=== PATIENT | female | born 1935 | race Caucasian/White ===

== ENCOUNTER 2018-11-10 01:50 | Observation (INO) | payer MEDICARE ==
[2018-11-10] MEDS ORDERED: Iopamidol 755 MG/ML 500 ML Multipack Bottle IVPUSH STA (02:56)
--- NOTE | 2018-11-10 02:59 | US ---
INDICATION: Bilateral leg pain TECHNIQUE: : Ultrasound venous duplex lower extremity bilateral. Compression venous exam was performed using vasques-scale, color Doppler, and spectral Doppler imaging. COMPARISON: None FINDINGS: Sonographic imaging demonstrates the common femoral, deep femoral, superficial femoral, popliteal, posterior tibial and greater saphenous veins to be fully compressible with normal color Doppler blood flow in both lower extremities. IMPRESSION: Normal bilateral lower extremity venous ultrasound, no sign of deep venous thrombosis. Dictated by Heide Edmond MD @ Nov 10 2018 2:58AM Signed by Dr. Heide Edmond @ Nov 10 2018 2:58AM
--- NOTE | 2018-11-10 03:27 | CT ---
INDICATION: Chest pain, elevated D-dimer TECHNIQUE: CT chest pulmonary PE protocol acquired with 100 cc Isovue 370 IV contrast. COMPARISON: None FINDINGS: Cardiovascular structures: Normal vascular enhancement of the pulmonary arteries, no sign of pulmonary embolism. Cardiomegaly. Coronary artery calcifications. No sign of aneurysm in the thoracic aorta. Mediastinum and tata: No mass or adenopathy. Lungs: Clear. Pleura and pericardium: No effusions. Chest wall and axilla: No mass or adenopathy. Upper abdomen: Unremarkable. Bones: No significant findings. IMPRESSION: No pulmonary embolism or pneumonia. No acute intrathoracic abnormality. Cardiomegaly with coronary artery disease. Please note that all CT scans at this facility use dose modulation, iterative reconstruction, and/or weight-based dosing when appropriate to reduce radiation dose to as low as reasonably achievable. Dictated by Heide Edmond MD @ Nov 10 2018 3:24AM Signed by Dr. Heide Edmond @ Nov 10 2018 3:24AM
[2018-11-10] MEDS ORDERED: Sodium Chloride 0.9% 1,000 ML IV SCH (03:45)
--- NOTE | 2018-11-10 03:49 | EDM.PDOC ---
ED HPI GENERAL MEDICAL PROBLEM - General Chief Complaint: General Stated Complaint: AMB Time Seen by Provider: 11/10/18 03:47 Source of Information: Reports: Patient - History of Present Illness INITIAL COMMENTS - FREE TEXT/NARRATIVE: HISTORY AND PHYSICAL: History of present illness: [82-year-old female nausea vomiting diarrhea presents from [facility] via EMS They had performed initial lab which is provided CBC CMP within normal limits however d-dimer was elevated patient did not have any chest pain shortness of breath and is hemodynamically stable resting comfortably at current. Perform CTA chest ultrasound of lower extremities ] Review of systems: As per history of present illness and below otherwise all systems reviewed and negative. Past medical history: As per history of present illness and as reviewed below otherwise noncontributory. Surgical history: As per history of present illness and as reviewed below otherwise noncontributory. Social history: No reported history of drug or alcohol abuse. Family history: As per history of present illness and as reviewed below otherwise noncontributory. Physical exam: HEENT: Atraumatic, normocephalic, pupils reactive, negative for conjunctival pallor or scleral icterus, mucous membranes moist, throat clear, neck supple, nontender, trachea midline. Lungs: Clear to auscultation, breath sounds equal bilaterally, chest nontender. Heart: S1S2, regular, negative for clicks, rubs, or JVD. Abdomen: Soft, nondistended, nontender. Negative for masses or hepatosplenomegaly. Negative for costovertebral tenderness. Pelvis: Stable nontender. Genitourinary: Deferred. Rectal: Deferred. Extremities: Atraumatic, negative for cords or calf pain. Neurovascular unremarkable. Neuro: Awake, alert, oriented. Cranial nerves II through XII unremarkable. Cerebellum unremarkable. Motor and sensory unremarkable throughout. Exam nonfocal. Diagnostics: [HEENT chest PE protocol Bilateral lower extremity Doppler ] Therapeutics: [ normal saline Zofran ] Impression: [ nausea vomiting diarrhea Viral syndrome ] Definitive disposition and diagnosis as appropriate pending reevaluation and review of above. bilateral leg Pain Score (Numeric/FACES): 8 - Related Data Allergies Allergy/AdvReac Type Severity Reaction Status Date / Time diclofenac [From Arthrotec] Allergy Other Verified 11/10/18 01:54 misoprostol [From [employer]throtec] Allergy Other Verified 11/10/18 01:54 NSAIDS (Non-Steroidal Allergy Other Verified 11/10/18 01:53 Anti-Inflamma Sulfa (Sulfonamide Allergy Other Verified 11/10/18 01:54 Antibiotics) walnut Allergy Other Verified 11/10/18 01:54 Home Meds: Home Meds traMADol [Ultram] 50 mg PO Q4H PRN 11/10/18 [History] traZODone HCl [Trazodone HCl] 50 mg PO BEDTIME 11/10/18 [History] Past Medical History HEENT History: Reports: None Cardiovascular History: Reports: Heart Murmur, High Cholesterol, Hypertension Respiratory History: Reports: None Genitourinary History: Reports: None 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: Reports: None Neurological History: Reports: None Psychiatric History: Reports: None Endocrine/Metabolic History: Reports: Diabetes, Type II Hematologic History: Reports: None Oncologic (Cancer) History: Reports: None Dermatologic History: Reports: None - Infectious Disease History Infectious Disease History: Reports: Chicken Pox, Measles, Mumps - Past Surgical History HEENT Surgical History: Reports: None GI Surgical History: Reports: Appendectomy Other Musculoskeletal Surgeries/Procedures:: left ankle surgery Social & Family History - Family History Family Medical History: Noncontributory - Tobacco Use Smoking Status *Q: Never Smoker - Recreational Drug Use Recreational Drug Use: No ED ROS GENERAL - Review of Systems Review Of Systems: See Below ED EXAM, GENERAL - Physical Exam Exam: See Below Course - Vital Signs Last Recorded V/S: Last Vital Signs Temp 97.1 F 11/10/18 03:36 Pulse 92 11/10/18 03:36 Resp 19 11/10/18 03:36 BP 151/61 H 11/10/18 03:36 Pulse Ox 94 L 11/10/18 03:36 - Orders/Labs/Meds Orders: Active Orders 24 hr Category Date Time Status Sodium Chloride 0.9% [Normal Saline] 1,000 ml Med 11/10/18 03:45 Ordered IV STAT Medication Orders Sodium Chloride (Normal Saline) 1,000 mls @ 125 mls/hr IV STAT ROSALIA Meds: Medications Generic Name Dose Route Start Last Admin Trade Name Freq PRN Reason Stop Dose Admin Sodium Chloride 1,000 mls @ 125 mls/hr 11/10/18 03:45 Normal Saline IV STAT ROSALIA Discontinued Medications Generic Name Dose Route Start Last Admin Trade Name Freq PRN Reason Stop Dose Admin Iopamidol 100 ml 11/10/18 02:56 11/10/18 02:56 Isovue Multipack-370 (76%) IVPUSH 11/10/18 02:57 100 ml ONETIME STA Administration Departure - Departure Time of Disposition: 03:48 Disposition: Refer to Observation Condition: Fair Clinical Impression: Dehydration - Discharge Information - My Orders Last 24 Hours: My Active Orders 11/10/18 03:45 Sodium Chloride 0.9% [Normal Saline] 1,000 ml IV STAT - Assessment/Plan Last 24 Hours: My Active Orders 11/10/18 03:45 Sodium Chloride 0.9% [Normal Saline] 1,000 ml IV STAT
[2018-11-10] MEDS: Sodium Chloride 0.9% 1,000 ML IV SCH ×2 (05:39→16:25)
--- NOTE | 2018-11-10 07:06 | PCM.HP ---
H&P History of Present Illness - General Date of Service: 11/10/18 Admit Problem/Dx: Admission Diagnosis/Problem Admission Diagnosis/Problem Dehydration Source of Information: Patient History Limitations: Reports: No Limitations - History of Present Illness Initial Comments - Free Text/Narative: The patient is an 82-year-old lady who had presented to her local hospital by ambulance with a complaint of severe pain in her bilateral lower extremities right greater than left. The patient has a history of severe right ankle fracture with retained hardware 5 years ago. The patient was also sent here for further workup due to elevated d-dimer. The patient feels weak and fatigued. The patient has denied any dizziness or lightheadedness. She's had no other complaints. The patient has been in relatively good health and is only taking medication for her pain and sleeping. Onset of Symptoms: Reports: Gradual Duration of Symptoms: Reports: Day(s): Location: Reports: Chest Quality: Reports: Ache, Stabbing Severity: Moderate Improves with: Reports: Rest Worsens with: Reports: Movement Context: Denies: Sick Contact Associated Symptoms: Reports: No Other Symptoms bilateral leg Pain Score (Numeric/FACES): 8 - Related Data Allergies/Adverse Reactions: Allergies Allergy/AdvReac Type Severity Reaction Status Date / Time diclofenac [From Arthrotec] Allergy Other Verified 11/10/18 01:54 misoprostol [From [employer]throtec] Allergy Other Verified 11/10/18 01:54 NSAIDS (Non-Steroidal Allergy Other Verified 11/10/18 01:53 Anti-Inflamma Sulfa (Sulfonamide Allergy Other Verified 11/10/18 01:54 Antibiotics) walnut Allergy Other Verified 11/10/18 01:54 Home Medications: Home Meds Esomeprazole [NexIUM] 20 mg PO DAILY 11/10/18 [History] Gabapentin [Neurontin] 300 mg PO TID 11/10/18 [History] traMADol [Ultram] 50 mg PO Q4H PRN 11/10/18 [History] traZODone HCl [Trazodone HCl] 50 mg PO BEDTIME 11/10/18 [History] Past Medical History HEENT History: Reports: None Cardiovascular History: Reports: Heart Murmur, High Cholesterol, Hypertension Respiratory History: Reports: None Gastrointestinal History: Reports: None Genitourinary History: Reports: None ACQUISITION ANALYST History: Reports: None Musculoskeletal History: Reports: None Neurological History: Reports: None Psychiatric History: Reports: None Endocrine/Metabolic History: Reports: Diabetes, Type II Hematologic History: Reports: None Oncologic (Cancer) History: Reports: None Dermatologic History: Reports: None - Infectious Disease History Infectious Disease History: Reports: Chicken Pox, Measles, Mumps - Past Surgical History HEENT Surgical History: Reports: None GI Surgical History: Reports: Appendectomy Other Musculoskeletal Surgeries/Procedures:: left ankle surgery Social & Family History - Family History Family Medical History: Noncontributory - Tobacco Use Smoking Status *Q: Never Smoker Second Hand Smoke Exposure: No - Caffeine Use Caffeine Use: Reports: None, Energy Drinks Caffeine Use Comment: drinks an energy drink occasionally. - Recreational Drug Use Recreational Drug Use: No - Living Situation & Occupation Living situation: Reports: , with Spouse Occupation: Retired H&P Review of Systems - Review of Systems: Review Of Systems: See Below General: Reports: Weakness, Fatigue HEENT: Reports: No Symptoms Pulmonary: Reports: No Symptoms Cardiovascular: Reports: No Symptoms Gastrointestinal: Reports: No Symptoms Genitourinary: Reports: No Symptoms Musculoskeletal: Reports: Leg Pain Skin: Reports: No Symptoms Psychiatric: Reports: No Symptoms Neurological: Reports: No Symptoms Hematologic/Lymphatic: Reports: No Symptoms Immunologic: Reports: No Symptoms Exam - Exam Exam: See Below - Vital Signs Vital Signs: Last Vital Signs Temp 37.1 C 11/10/18 04:41 Pulse 97 11/10/18 04:41 Resp 18 11/10/18 04:41 BP 160/78 H 11/10/18 04:41 Pulse Ox 96 11/10/18 04:41 Weight: 76.566 kg - Exam Quality Assessment: Supplemental Oxygen General: Alert, Oriented, Cooperative HEENT: Conjunctiva Clear, EACs Clear, EOMI, Hearing Intact, Mucosa Moist & [place] , Pupils Equal, PERRLA Neck: Supple, Trachea Midline. No: JVD Lungs: Clear to Auscultation, Normal Respiratory Effort Cardiovascular: Regular Rate, Regular Rhythm GI/Abdominal Exam: Normal Bowel Sounds, Soft, Non-Tender, No Organomegaly, No Distention (Female) Exam: Deferred Rectal (Female) Exam: Deferred Back Exam: Full Range of Motion (Age-related changes). No: Normal Inspection ( Kyphosis) Extremities: Normal Inspection, Normal Range of Motion, Non-Tender Skin: Warm, Dry, Intact Neuro Extensive - Mental Status: Alert, Oriented x3 Neuro Extensive - Motor, Sensory, Reflexes: CN II-XII Intact, Normal Gait, Normal Reflexes Psychiatric: Alert, Normal Affect, Normal Mood - Patient Data Result Diagrams: 11/10/18 07:44 11/10/18 07:44 - Problem List (1) Dehydration SNOMED Code(s): 66644396 ICD Code: E86.0 - DEHYDRATION Status: Acute Priority: High Current Visit: Yes (2) History of fracture of right ankle SNOMED Code(s): 522750582 ICD Code: Z87.81 - PERSONAL HISTORY OF (HEALED) TRAUMATIC FRACTURE Status: Chronic Priority: Medium Current Visit: Yes (3) Insomnia SNOMED Code(s): 183560152 ICD Code: G47.00 - INSOMNIA, UNSPECIFIED Status: Chronic Priority: Medium Current Visit: Yes Qualifiers: Insomnia type: other insomnia Qualified Code(s): G47.09 - Other insomnia (4) Chronic pain after traumatic injury SNOMED Code(s): 394884626 ICD Code: G89.29 - OTHER CHRONIC PAIN Status: Chronic Priority: Medium Current Visit: Yes Problem List Initiated/Reviewed/Updated: Yes Orders Last 24hrs: Active Orders 24 hr Category Date Time Status Admission Status [Patient Status] [ADT] Stat ADT 11/10/18 03:49 Active Regular Diet [DIET] Diet 11/10/18 Breakfast Active Sodium Chloride 0.9% [Normal Saline] 1,000 ml Med 11/10/18 05:30 Active IV ASDIRECTED Medication Orders Sodium Chloride (Normal Saline) 1,000 mls @ 75 mls/hr IV ASDIRECTED ROSALIA Last Admin: 11/10/18 05:39 Dose: 75 mls/hr Assessment/Plan Comment:: The patient is an 82-year-old lady who had been admitted to observation this morning. She'll be kept on IV fluids at 100 mL per hour normal saline. Patient has been encouraged to ambulate. The patient does have chronic pain in her legs and physical therapy is also been ordered. The patient has a personal history of diabetes mellitus type 2 however, she is not on medication for this. The patient will be kept on a ADA diet for now. I do not believe that she needs to be on Accu-Cheks at this time. The patient also will be kept on DVT prophylaxis with the use of heparin. Once the patient has achieved a degree of relief from her pain and she has been evaluated by physical therapy she'll likely be appropriate for discharge home.
[2018-11-10] MEDS ORDERED: traMADol 50 MG Tab PO PRN (07:55)
[2018-11-10] MEDS ORDERED: oxyCODONE 5 MG Tab PO PRN (07:56)
[2018-11-10] MEDS ORDERED: Docusate Sodium 100 MG Cap PO PRN (07:56)
[2018-11-10] MEDS ORDERED: Acetaminophen 325 MG Tab PO PRN (07:56)
[2018-11-10 08:32] LABS: CHLORIDE,CL 102 mmol/L (98-107); SODIUM,NA 138 mmol/L (136-145)
[2018-11-10] MEDS: Gabapentin 300 MG Cap PO SCH ×3 (08:50→21:36)
[2018-11-10] MEDS: Omeprazole 20 MG Cap.CR PO SCH (08:50)
[2018-11-10] MEDS: Heparin Sodium 5,000 Units/ML Vial SUBCUT SCH ×2 (14:28→21:36)
[2018-11-10] MEDS ORDERED: traZODone 50 MG Tab PO SCH (21:00)
[2018-11-11] MEDS: Sodium Chloride 0.9% 1,000 ML IV SCH (05:55)
[2018-11-11] MEDS: Gabapentin 300 MG Cap PO SCH (06:34)
[2018-11-11] MEDS: Omeprazole 20 MG Cap.CR PO SCH (06:34)
[2018-11-11] MEDS: Heparin Sodium 5,000 Units/ML Vial SUBCUT SCH (06:34)
--- NOTE | 2018-11-11 07:38 | PCM.DCSUM1 ---
Discharge Summary - Hospital Course HPI Initial Comments: The patient was admitted initially secondary to dehydration and pain in both of her legs being unable to ambulate. Diagnosis: Stroke: No - Discharge Data Discharge Date: 11/11/18 Discharge Disposition: Home, Self-Care 01 Condition: Fair - Discharge Diagnosis/Problem(s) (1) Dehydration SNOMED Code(s): 79450939 ICD Code: E86.0 - DEHYDRATION Status: Resolved Priority: High Current Visit: Yes (2) History of fracture of right ankle SNOMED Code(s): 658180871 ICD Code: Z87.81 - PERSONAL HISTORY OF (HEALED) TRAUMATIC FRACTURE Status: Chronic Priority: Medium Current Visit: Yes (3) Insomnia SNOMED Code(s): 932031350 ICD Code: G47.00 - INSOMNIA, UNSPECIFIED Status: Chronic Priority: Medium Current Visit: Yes Qualifiers: Insomnia type: other insomnia Qualified Code(s): G47.09 - Other insomnia (4) Chronic pain after traumatic injury SNOMED Code(s): 935867423 ICD Code: G89.29 - OTHER CHRONIC PAIN Status: Chronic Priority: Medium Current Visit: Yes - Patient Summary/Data Consults: Consultations 11/11/18 07:00 Consult to Occupational Therapy [OT Evaluation and Treatment] [CONS] Routine PT Evaluation and Treatment [CONS] Routine Hospital Course: The patient is an 82-year-old lady who had been admitted to observation this morning. She'll be kept on IV fluids at 100 mL per hour normal saline. Patient has been encouraged to ambulate. The patient does have chronic pain in her legs and physical therapy is also been ordered. The patient has a personal history of diabetes mellitus type 2 however, she is not on medication for this. The patient will be kept on a ADA diet for now. I do not believe that she needs to be on Accu-Cheks at this time. The patient also will be kept on DVT prophylaxis with the use of heparin. The patient also had been kept on appropriate ADA diet secondary to her diabetes. The patient also had been evaluated by physical therapy and was thought that she would do well in her home with a front wheel walker and steps. The patient does have a walker available. She was kept on IV normal saline at 100 mL per hour for gentle hydration. The patient did not have any evidence of cell or metabolic abnormalities other than hyperglycemia which was mild and easily controlled. Her glucose was at its maximum 114 mg/dL. The patient was also kept on her appropriate home medications. She had continued to improve with hydration, rest and had been thoroughly evaluated by physical therapy. The patient does have a 2 story house with one flight of stairs. It was not should she would do well ambulating. Because of the patient's pain was thought to be due to her osteoarthritis and she had been given a short prescription for Robaxin 500 mg by mouth every 8 hours. The patient has been tolerating her ADA diet and this is to continue. Patient is also to have activity as tolerated. She is to follow-up with her primary care physician. She has been hemodynamically stable and is been discharged from acute hospitalization with recommendations above. - Patient Instructions Diet: Heart Healthy Diet, Diabetic Diet Activity: As Tolerated - Discharge Plan *PRESCRIPTION DRUG MONITORING PROGRAM REVIEWED*: No *COPY OF PRESCRIPTION DRUG MONITORING REPORT IN PATIENT JOJO: No Prescriptions/Med Rec: Methocarbamol [Robaxin] 500 mg PO Q8H PRN #30 tablet PRN Reason: Muscle Spasm Home Medications: Home Meds Esomeprazole [NexIUM] 20 mg PO DAILY 11/10/18 [History] Gabapentin [Neurontin] 300 mg PO TID 11/10/18 [History] traMADol [Ultram] 50 mg PO Q4H PRN 11/10/18 [History] traZODone HCl [Trazodone HCl] 50 mg PO BEDTIME 11/10/18 [History] Methocarbamol [Robaxin] 500 mg PO Q8H PRN #30 tablet 11/11/18 [Rx] Oxygen Therapy Mode: Room Air Patient Handouts: Dehydration, Adult, Trfr-ol-[id number], Methocarbamol tablets Referrals: [facility] [Outside] Kev Lopes MD [Ordering Only Provider] - 11/19/18 11:00 am - Discharge Summary/Plan Comment DC Time >30 min.: Yes - General Info Date of Service: 11/11/18 Admission Dx/Problem (Free Text: Admission Diagnosis/Problem Admission Diagnosis/Problem Dehydration Subjective Update: Doing well, tolerating physical therapy. Functional Status: Reports: Pain Controlled - Review of Systems General: Reports: No Symptoms HEENT: Reports: No Symptoms Pulmonary: Reports: No Symptoms Cardiovascular: Reports: No Symptoms Gastrointestinal: Reports: No Symptoms Genitourinary: Reports: No Symptoms Musculoskeletal: Reports: Leg Pain Skin: Reports: No Symptoms Neurological: Reports: No Symptoms Psychiatric: Reports: No Symptoms - Patient Data Vitals - Most Recent: Last Vital Signs Temp 36.1 C 11/11/18 04:00 Pulse 68 11/11/18 04:00 Resp 16 11/11/18 04:00 BP 140/61 11/11/18 04:00 Pulse Ox 92 L 11/11/18 04:00 Weight - Most Recent: 76.566 kg I&O - Last 24 hours: Intake & Output 11/10/18 11/11/18 11/11/18 22:59 06:59 14:59 Intake Total 1713 1127 Output Total 950 400 Balance 763 727 Lab Results - Last 24 hrs: Laboratory Results - last 24 hr 11/10/18 11/10/18 11/11/18 Range/Units 07:44 07:44 05:40 WBC 10.58 5.62 (4.0-11.0) K/uL RBC 4.22 L 4.02 L (4.30-5.90) M/uL Hgb 12.9 12.1 (12.0-16.0) g/dL Hct 38.9 38.1 (36.0-46.0) % MCV 92.2 94.8 (80.0-98.0) fL MCH 30.6 30.1 (27.0-32.0) pg MCHC 33.2 31.8 (31.0-37.0) g/dL RDW Std Deviation 43.6 46.1 (28.0-62.0) fl RDW Coeff of Hodan 13 13 (11.0-15.0) % Plt Count 167 187 (150-400) K/uL MPV 10.20 9.70 (7.40-12.00) fL Neut % (Auto) 77.5 55.8 (48.0-80.0) % Lymph % (Auto) 17.8 34.2 (16.0-40.0) % [place] % (Auto) 4.5 7.8 (0.0-15.0) % Eos % (Auto) 0.1 2.0 (0.0-7.0) % Baso % (Auto) 0.1 0.2 (0.0-1.5) % Neut # (Auto) 8.2 H 3.1 (1.4-5.7) K/uL Lymph # (Auto) 1.9 1.9 (0.6-2.4) K/uL [place] # (Auto) 0.5 0.4 (0.0-0.8) K/uL Eos # (Auto) 0.0 0.1 (0.0-0.7) K/uL Baso # (Auto) 0.0 0.0 (0.0-0.1) K/uL Nucleated RBC % 0.0 0.0 /100WBC Nucleated RBCs # 0 0 K/uL Sodium 138 (136-145) mmol/L Potassium 4.1 (3.5-5.1) mmol/L Chloride 102 (98-107) mmol/L Carbon Dioxide 25.7 (21.0-32.0) mmol/L BUN 11 (7.0-18.0) mg/dL Creatinine 0.8 (0.6-1.0) mg/dL Est Cr Clr Drug Dosing 43.62 mL/min Estimated GFR (MDRD) > 60.0 ml/min Glucose 114 H (74-106) mg/dL Calcium 9.1 (8.5-10.1) mg/dL Magnesium 2.0 (1.8-2.4) mg/dL Total Bilirubin 0.4 (0.2-1.0) mg/dL AST 18 (15-37) IU/L ALT 19 (14-63) IU/L Alkaline Phosphatase 78 (46-116) U/L Total Protein 6.4 (6.4-8.2) g/dL Albumin 3.4 (3.4-5.0) g/dL Globulin 3.0 (2.6-4.0) g/dL Albumin/Globulin Ratio 1.1 (0.9-1.6) 11/11/18 Range/Units 05:40 WBC (4.0-11.0) K/uL RBC (4.30-5.90) M/uL Hgb (12.0-16.0) g/dL Hct (36.0-46.0) % MCV (80.0-98.0) fL MCH (27.0-32.0) pg MCHC (31.0-37.0) g/dL RDW Std Deviation (28.0-62.0) fl RDW Coeff of [place] (11.0-15.0) % Plt Count (150-400) K/uL MPV (7.40-12.00) fL Neut % (Auto) (48.0-80.0) % Lymph % (Auto) (16.0-40.0) % [place] % (Auto) (0.0-15.0) % Eos % (Auto) (0.0-7.0) % Baso % (Auto) (0.0-1.5) % Neut # (Auto) (1.4-5.7) K/uL Lymph # (Auto) (0.6-2.4) K/uL [place] # (Auto) (0.0-0.8) K/uL Eos # (Auto) (0.0-0.7) K/uL Baso # (Auto) (0.0-0.1) K/uL Nucleated RBC % /100WBC Nucleated RBCs # K/uL Sodium 140 (136-145) mmol/L Potassium 4.2 (3.5-5.1) mmol/L Chloride 105 (98-107) mmol/L Carbon Dioxide 27.7 (21.0-32.0) mmol/L BUN 13 (7.0-18.0) mg/dL Creatinine 1.0 (0.6-1.0) mg/dL Est Cr Clr Drug Dosing 34.90 mL/min Estimated GFR (MDRD) 53.2 ml/min Glucose 109 H (74-106) mg/dL Calcium 8.6 (8.5-10.1) mg/dL Magnesium (1.8-2.4) mg/dL Total Bilirubin (0.2-1.0) mg/dL AST (15-37) IU/L ALT (14-63) IU/L Alkaline Phosphatase (46-116) U/L Total Protein (6.4-8.2) g/dL Albumin (3.4-5.0) g/dL Globulin (2.6-4.0) g/dL Albumin/Globulin Ratio (0.9-1.6) Med Orders - Current: Current Medications Acetaminophen (Tylenol) 650 mg PO Q4H PRN PRN Reason: Pain (Mild 1-3)/fever Last Admin: 11/10/18 09:23 Dose: 650 mg Docusate Sodium (Colace) 100 mg PO BID PRN PRN Reason: Constipation Gabapentin (Neurontin) 300 mg PO TID [facility] Last Admin: 11/11/18 06:34 Dose: 300 mg Heparin Sodium (Porcine) (Heparin Sodium) 5,000 units SUBCUT Q8H [facility] Last Admin: 11/11/18 06:34 Dose: 5,000 units Sodium Chloride (Normal Saline) 1,000 mls @ 75 mls/hr IV ASDIRECTED [facility] Last Admin: 11/11/18 05:55 Dose: 75 mls/hr Omeprazole (Omeprazole) 20 mg PO ACBREAKFAST [facility] Last Admin: 11/11/18 06:34 Dose: 20 mg Oxycodone HCl (Oxycodone) 5 mg PO Q4H PRN PRN Reason: Pain (moderate 4-6) Last Admin: 11/10/18 14:34 Dose: 5 mg Tramadol HCl (Ultram) 50 mg PO Q4H PRN PRN Reason: pain Trazodone HCl (Trazodone) 50 mg PO BEDTIME [facility] Last Admin: 11/10/18 21:36 Dose: 50 mg Discontinued Medications Sodium Chloride (Normal Saline) 1,000 mls @ 125 mls/hr IV STAT [facility] Last Admin: 11/10/18 03:54 Dose: 125 mls/hr Iopamidol (Isovue Multipack-370 (76%)) 100 ml IVPUSH ONETIME STA Stop: 11/10/18 02:57 Last Admin: 11/10/18 02:56 Dose: 100 ml - Exam Quality Assessment: Denies: Supplemental Oxygen General: Reports: Alert, Oriented, Cooperative, No Acute Distress HEENT: Reports: Pupils Equal, Pupils Reactive, EOMI, Mucous Membr. Moist/[place] Neck: Reports: Supple, Trachea Midline Lungs: Reports: Clear to Auscultation, Normal Respiratory Effort Cardiovascular: Reports: Regular Rate, Regular Rhythm GI/Abdominal Exam: Normal Bowel Sounds, Soft, Non-Tender, No Distention (Female) Exam: Deferred Rectal (Female) Exam: Deferred Back Exam: Reports: Normal Inspection (Age appropriate) Extremities: Normal Inspection, No Pedal Edema Skin: Reports: Warm, Dry, Intact Neurological: Reports: No New Focal Deficit Psy/Mental Status: Reports: Alert, Normal Affect, Normal Mood
== END 2018-11-11 14:50 | disposition home or self-care (01) ==
LOC: MW.ED 01:50 → MW.MS 03:49
PROVIDERS: ADMIT Internal Medicine; ATTEND Internal Medicine
DX: E86.0 Dehydration (principal); G89.21 Chronic pain due to trauma; G47.09 Other insomnia; Z87.81 Personal history of (healed) traumatic fracture; Z79.891 Long term (current) use of opiate analgesic; Z79.899 Other long term (current) drug therapy; Z86.39 Personal history of other endocrine, nutritional and metabolic disease
CPT/HCPCS: 36415; 71275; 80048; 80053; 83735; 85025; 93970; 96360; 96361; 96372; 97161; 97530; 99284; A9270; G0378; J1644; J7040; Q9967